=== PATIENT | female | born 1965 | race Caucasian/White ===

== ENCOUNTER 2016-06-03 12:21 | Outpatient (CLI) | payer MEDICARE | END 2016-06-03 12:22 | disposition home or self-care (01) | DX: E11.9 Type 2 diabetes mellitus without complications (principal) ==

== ENCOUNTER 2017-01-01 09:45 | Outpatient (CLI) | payer MEDICARE, OTHER ==
[2017-01-01 19:10] LABS: BASOPHILS % (AUTO) 0.8 %; EOSINOPHILS # (AUTO) 0.1 10^3/uL (0.0-0.7); EOSINOPHILS % (AUTO) 2.2 %; HCT - HEMATOCRIT 39.7 % (37.0-47.0); HGB - HEMOGLOBIN 13.3 g/dL (12.0-16.0); LYMPHOCYTES % (AUTO) 34.9 %; MEAN CORPUSCULAR HEMOGLOBIN 29.8 pg (27.0-31.0); MEAN CORPUSCULAR HGB CONC 33.5 g/dL (32.0-36.0); MEAN PLATELET VOLUME 8.1 fL (7.9-10.8); MONOCYTES # (AUTO) 0.4 10^3/uL (0.0-1.0); MONOCYTES % (AUTO) 6.3 %; NEUTROPHILS # (AUTO) 3.2 10^3/uL (1.5-6.6); NEUTROPHILS % (AUTO) 55.8 %; NUCLEATED RED BLOOD CELLS AUTO 0.1 /100WBC; RED BLOOD COUNT 4.46 10^6/uL (4.20-5.40); RED CELL DISTRIBUTION WIDTH 13.4 % (12.0-15.0); UNCORRECTED WHITE BLOOD COUNT 5.7 x10^3/uL; WHITE BLOOD COUNT 5.7 x10^3/uL (4.8-10.8)
[2017-01-01 19:33] LABS: ALBUMIN/GLOBULIN RATIO 1.1 (1.0-2.2); BILIRUBIN,TOTAL 0.3 mg/dL (0.2-1.0); BUN - BLOOD UREA NITROGEN 13 mg/dL (6-20); CALCIUM 9.2 mg/dL (8.5-10.3); CARBON DIOXIDE - CO2 30 mmol/L (21-32); CHLORIDE 101 mmol/L (101-111); CHOL/HDL RATIO 3.3 (<4.4); CHOLESTEROL 227 mg/dL; CREATININE 0.6 mg/dL (0.4-1.0); GFR - MDRD 105 (>89); GLUCOSE 119 mg/dL (70-100); HDL CHOLESTEROL 69 mg/dL; LDL/HDL RATIO 1.8 (<4.4); POTASSIUM 4.2 mmol/L (3.5-5.0); SODIUM 139 mmol/L (135-145); TRIGLYCERIDES 181 mg/dL; VLDL CHOLESTEROL 36 mg/dL
[2017-01-01 19:34] LABS: HEMOGLOBIN A1C 0.57 g/dL
[2017-01-04 00:02] LABS: HSV 1 IGG INDEX <0.90 INDEX (()); HSV 1/2 IGM INDEX <0.90 INDEX (()); HSV 2 IGG INDEX 8.17 INDEX (())
== END 2017-01-01 09:46 | disposition home or self-care (01) ==
LOC: LAB.WCP 09:45
PROVIDERS: ATTEND Family Medicine
DX: N76.0 Acute vaginitis (principal)
CPT/HCPCS: 36415; 80053; 80061; 83036; 85025; 86694; 86695; 86696; 87480; 87491; 87510; 87591; 87660

== ENCOUNTER 2017-03-31 13:20 | Outpatient (CLI) | payer MEDICARE, OTHER | END 2017-03-31 13:21 | disposition home or self-care (01) | LOC: LAB.WCP 13:20 | PROVIDERS: ATTEND Family Medicine | DX: R39.15 Urgency of urination (principal) | CPT/HCPCS: 87086 ==

== ENCOUNTER 2017-11-17 11:22 | Outpatient (CLI) | payer MEDICARE ==
[2017-11-17 18:34] LABS: BASOPHILS % (AUTO) 0.7 %; EOSINOPHILS # (AUTO) 0.1 10^3/uL (0.0-0.7); EOSINOPHILS % (AUTO) 1.8 %; HGB - HEMOGLOBIN 13.5 g/dL (12.0-16.0); LYMPHOCYTES # (AUTO) 1.8 10^3/uL (1.5-3.5); LYMPHOCYTES % (AUTO) 46.5 %; MEAN CORPUSCULAR HEMOGLOBIN 29.6 pg (27.0-31.0); MEAN CORPUSCULAR HGB CONC 32.3 g/dL (32.0-36.0); MEAN CORPUSCULAR VOLUME 91.7 fL (81.0-99.0); MEAN PLATELET VOLUME 8.1 fL (7.9-10.8); MONOCYTES # (AUTO) 0.3 10^3/uL (0.0-1.0); MONOCYTES % (AUTO) 7.1 %; NEUTROPHILS # (AUTO) 1.7 10^3/uL (1.5-6.6); NEUTROPHILS % (AUTO) 43.9 %; PLT - PLATELET COUNT 259 10^3/uL (130-450); RED BLOOD COUNT 4.56 10^6/uL (4.20-5.40); RED CELL DISTRIBUTION WIDTH 13.8 % (12.0-15.0); WHITE BLOOD COUNT 3.8 x10^3/uL (4.8-10.8)
[2017-11-17 19:04] LABS: ALBUMIN 3.5 g/dL (3.2-5.5); ALKALINE PHOSPHATASE 45 IU/L (42-121); ALT ALANINE AMINOTRANSFERASE 20 IU/L (10-60); AST ASPARTATE AMINOTRANSFERASE 23 IU/L (10-42); BILIRUBIN,TOTAL 0.6 mg/dL (0.2-1.0); BUN - BLOOD UREA NITROGEN 12 mg/dL (6-20); CALCIUM 9.1 mg/dL (8.5-10.3); CARBON DIOXIDE - CO2 28 mmol/L (21-32); CHLORIDE 102 mmol/L (101-111); CHOL/HDL RATIO 2.6 (<4.4); CHOLESTEROL 199 mg/dL; CREATININE 0.5 mg/dL (0.4-1.0); GFR - MDRD 129 (>89); GLUCOSE 99 mg/dL (70-100); HDL CHOLESTEROL 77 mg/dL; LDL CHOLESTEROL,CALCULATED 95 mg/dL; LDL/HDL RATIO 1.2 (<4.4); SODIUM 139 mmol/L (135-145); TOTAL PROTEIN 7.1 g/dL (6.7-8.2); VLDL CHOLESTEROL 27 mg/dL
[2017-11-17 19:19] LABS: HB2 TOTAL 14.7 g/dL; HEMOGLOBIN A1C 0.53 g/dL; HEMOGLOBIN A1C % 5.4 % (4.6-6.2)
== END 2017-11-17 11:23 | disposition home or self-care (01) ==
LOC: LAB.WCP 11:22
PROVIDERS: ATTEND Family Medicine
DX: I10 Essential (primary) hypertension (principal); E78.5 Hyperlipidemia, unspecified; E03.9 Hypothyroidism, unspecified
CPT/HCPCS: 36415; 80053; 80061; 83036; 83721; 84443; 85025

== ENCOUNTER 2018-01-19 10:50 | Outpatient (CLI) | payer MEDICARE | END 2018-01-19 10:51 | disposition home or self-care (01) | LOC: SC 10:50 | PROVIDERS: ATTEND Internal Medicine Pulmonary Disease | DX: G47.33 Obstructive sleep apnea (adult) (pediatric) (principal); E66.9 Obesity, unspecified; Z68.35 Body mass index [BMI] 35.0-35.9, adult | CPT/HCPCS: 99203; G0463; 99212 ==

== ENCOUNTER 2018-02-27 14:02 | Outpatient (CLI) | payer MEDICARE ==
[2018-02-27 19:00] LABS: THYROID STIMULATING HORMONE 1.2 uIU/mL (0.34-5.60)
[2018-02-27 19:02] LABS: FREE T4 (FREE THYROXINE) 0.94 ng/dL (0.58-1.64)
== END 2018-02-27 14:03 | disposition home or self-care (01) ==
LOC: LAB.WCP 14:02
PROVIDERS: ATTEND Family Medicine
DX: E03.9 Hypothyroidism, unspecified (principal)
CPT/HCPCS: 36415; 84439; 84443; 84481

== ENCOUNTER 2018-03-03 10:20 | Outpatient (CLI) | payer MEDICARE | END 2018-03-03 10:21 | disposition home or self-care (01) | LOC: SC 10:20 | PROVIDERS: ATTEND Internal Medicine Pulmonary Disease | DX: G47.33 Obstructive sleep apnea (adult) (pediatric) (principal) | CPT/HCPCS: 99213; G0463; 99212 ==

== ENCOUNTER 2019-01-19 08:00 | Outpatient (CLI) | payer MEDICARE ==
[2019-01-19 18:41] LABS: BASOPHILS % (AUTO) 0.6 %; EOSINOPHILS # (AUTO) 0.1 10^3/uL (0.0-0.7); EOSINOPHILS % (AUTO) 2.4 %; HGB - HEMOGLOBIN 14.1 g/dL (12.0-16.0); LYMPHOCYTES # (AUTO) 2.2 10^3/uL (1.5-3.5); LYMPHOCYTES % (AUTO) 46.8 %; MEAN CORPUSCULAR HEMOGLOBIN 30.3 pg (27.0-31.0); MEAN CORPUSCULAR HGB CONC 32.4 g/dL (32.0-36.0); MEAN CORPUSCULAR VOLUME 93.3 fL (81.0-99.0); MONOCYTES # (AUTO) 0.4 10^3/uL (0.0-1.0); MONOCYTES % (AUTO) 9.1 %; NEUTROPHILS # (AUTO) 1.9 10^3/uL (1.5-6.6); NEUTROPHILS % (AUTO) 40.9 %; PLT - PLATELET COUNT 316 10^3/uL (130-450); RED BLOOD COUNT 4.66 10^6/uL (4.20-5.40); RED CELL DISTRIBUTION WIDTH 13.3 % (12.0-15.0); WHITE BLOOD COUNT 4.6 x10^3/uL (4.8-10.8)
[2019-01-19 19:05] LABS: CREATININE,URINE 103.2 mg/dL; MICROALBUMIN,URINE < 0.2 mg/dL (0-300.0)
[2019-01-19 19:11] LABS: HB2 TOTAL 14.6 g/dL; HEMOGLOBIN A1C 0.56 g/dL; HEMOGLOBIN A1C % 5.7 % (4.6-6.2)
[2019-01-19 19:20] LABS: ALBUMIN 3.9 g/dL (3.2-5.5); ALBUMIN/GLOBULIN RATIO 1.1 (1.0-2.2); ALKALINE PHOSPHATASE 46 IU/L (42-121); ALT ALANINE AMINOTRANSFERASE 23 IU/L (10-60); AST ASPARTATE AMINOTRANSFERASE 23 IU/L (10-42); BILIRUBIN,TOTAL 0.5 mg/dL (0.2-1.0); BUN - BLOOD UREA NITROGEN 16 mg/dL (6-20); CALCIUM 9.3 mg/dL (8.5-10.3); CARBON DIOXIDE - CO2 26 mmol/L (21-32); CHLORIDE 103 mmol/L (101-111); CHOL/HDL RATIO 2.8 (<4.4); CHOLESTEROL 239 mg/dL; CREATININE 0.5 mg/dL (0.4-1.0); GFR - MDRD 128 (>89); GLUCOSE 84 mg/dL (70-100); HDL CHOLESTEROL 85 mg/dL; LDL CHOLESTEROL,CALCULATED 112 mg/dL; LDL/HDL RATIO 1.3 (<4.4); SODIUM 137 mmol/L (135-145); TOTAL PROTEIN 7.5 g/dL (6.7-8.2); VLDL CHOLESTEROL 42 mg/dL
== END 2019-01-19 23:59 | disposition home or self-care (01) ==
LOC: LAB.WCP 08:00
PROVIDERS: ATTEND Family Medicine
DX: I10 Essential (primary) hypertension (principal); E78.5 Hyperlipidemia, unspecified; E11.9 Type 2 diabetes mellitus without complications; E03.9 Hypothyroidism, unspecified
CPT/HCPCS: 36415; 80053; 80061; 82043; 82570; 83036; 83721; 84443; 85025

== ENCOUNTER 2019-11-29 12:46 | Outpatient (CLI) | payer MEDICARE | END 2019-11-29 12:47 | disposition home or self-care (01) | LOC: COV 12:46 | PROVIDERS: ATTEND Family Medicine | DX: Z01.812 Encounter for preprocedural laboratory examination (principal); Z20.828 Contact with and (suspected) exposure to other viral communicable diseases ==

== ENCOUNTER 2020-04-19 15:02 | Outpatient (CLI) | payer MEDICARE ==
--- NOTE | 2020-04-19 15:38 | SLEEP CARE CONSULTATION ---
Information from patient questionnaire entered by Miguel Haq. I have reviewed and concur with the information entered by Miguel Haq. This document represents the service I personally performed and the decisions made by , Merlyn Worthy ARNP. History of Present Illness Service Date and Time: 04/19/2020 1502 Previous diagnosis: Moderate, Obstructive Sleep Apnea-Hypopnea Syndrome AHI: 20.3 Reason for follow up: annual (Last seen 02/2018) Equipment type: CPAP Equipment obtained from: [employer] (some frustration lately due to not being able to get service for mask refitting) Mask style: Nasal (Dream Wisp) Mask brand: Respironics Backup mask available: Yes (old mask) Last cushion change: 2 weeks Year and Where: 2008 [facility] Type of Sleep Study: Polysomnography HPI additional information: MADALYN ARRINGTON was diagnosed to have moderate, AHI 20.3, obstructive sleep apnea- hypopnea syndrome and returned today for CPAP therapy first compliance follow- up. CPAP Compliance Data - Data Reviewed with Patient Average duration of nightly device use: 7 hours 13 minutes Compliance rate %: 97.2 Current pressure setting (cmH2O): 8-12 Humidity settin Heated hose settin Average residual AHI: 3.3 Central apnea: 0.3 Obstructive apnea: 1.2 Average large leak: 57 seconds Subjective Missed days of use due to: reports: mask issues Patient concerns: reports: air blowing in eyes, dry mouth, nose, throat (dry nose), other (headache, not sure if related to therapy, may be related to neck/back issues). denies: aerophagia, mask discomfort, mask leak noise, condensation in mask/hose, nasal congestion, epistaxis Observed to snore while using device: No Current pressure setting perceived as: comfortable On therapy, patient: reports: sleeping better, awakening more refreshed, being more awake and alert during the day, more rested overall. denies: drowsiness while driving Initial [place] Sleepiness Scale score: 6 (in 2018) Current [place] Sleepiness Scale score: 4 Allergies and Home Medications Drug allergies reviewed: Yes (see above) Home medication list reviewed: Yes (no changes) Review of Systems Review of systems same as previous: Yes (no changes) Physical Exam Heart Rate: 79 O2 Saturation: 98 Height: 5 ft 8 in Weight: 233 lb Body Mass Index: 35.4 BMI Classification: Obese Impression and Plan 1. Obstructive Sleep Apnea-Hypopnea Syndrome, moderate, with good treatment compliance and good apnea control. On CPAP therapy, the patient has better sleep quality and is more rested overall. Patient has had some very dry nasal passages lately with CPAP use. Nasal dryness can be reduced with increasing the CPAP humidity as shown on sample device and the heated hose can be increased if condensation. I verbally described how to change the settings. She is currently at 4 humidity and 4 on heated hose, she was instructed to try to reduce the heated hose to 3 first before increasing humidity setting. She voiced understanding. She would like to try a different mask style. She is currently using a DreamWisp mask, small/medium. I showed her different styles in the office and she would like to try the nasal cushion mask. Her DME will be faxed an order for the change. Patient's apnea severity and rationale for treatment to reduce apnea, improve sleep quality and reduce cardiovascular and cerebrovascular events was reviewed. I also reviewed the benefit of consistent device use of CPAP for hypertension, diabetes, gastric reflux, and depression/anxiety. * Continue auto CPAP pressure at 8-12 cmH2O * Patient to try a nasal cushion mask, script written * Notify me if snoring with mask or feeling that the pressure is too much or too little * Attempt to lose weight * Call this office if any problems using CPAP * Return for follow up in 1 year , or sooner if concerns arise Counseling Topics: Spare mask, Weight loss health impact Visit Type: In Office Time Spent with Patient (minutes): 24 Provider Statement: I spent 100% of the Face to Face Visit with the patient with greater than 50% spent counseling the patient and coordination of care.
== END 2020-04-19 15:03 | disposition home or self-care (01) ==
LOC: SC 15:02
PROVIDERS: ATTEND Nurse Practitioner Family
DX: G47.33 Obstructive sleep apnea (adult) (pediatric) (principal); E66.9 Obesity, unspecified; Z68.35 Body mass index [BMI] 35.0-35.9, adult
CPT/HCPCS: 99213; G0463; 99212

== ENCOUNTER 2020-05-11 08:00 | Outpatient (CLI) | payer MEDICARE ==
[2020-05-11 18:45] LABS: BASOPHILS % (AUTO) 0.9 %; EOSINOPHILS # (AUTO) 0.1 10^3/uL (0.0-0.7); EOSINOPHILS % (AUTO) 3.1 %; HCT - HEMATOCRIT 42.1 % (37.0-47.0); HGB - HEMOGLOBIN 13.3 g/dL (12.0-16.0); LYMPHOCYTES # (AUTO) 1.9 10^3/uL (1.5-3.5); LYMPHOCYTES % (AUTO) 40.6 %; MEAN CORPUSCULAR HEMOGLOBIN 29.8 pg (27.0-31.0); MEAN CORPUSCULAR HGB CONC 31.6 g/dL (32.0-36.0); MEAN CORPUSCULAR VOLUME 94.4 fL (81.0-99.0); MEAN PLATELET VOLUME 10.1 fL (7.9-10.8); MONOCYTES # (AUTO) 0.3 10^3/uL (0.0-1.0); MONOCYTES % (AUTO) 6.8 %; NEUTROPHILS # (AUTO) 2.2 10^3/uL (1.5-6.6); NEUTROPHILS % (AUTO) 48.2 %; PLT - PLATELET COUNT 278 10^3/uL (130-450); RED BLOOD COUNT 4.46 10^6/uL (4.20-5.40); RED CELL DISTRIBUTION WIDTH 13.4 % (12.0-15.0); WHITE BLOOD COUNT 4.6 x10^3/uL (4.8-10.8)
[2020-05-11 18:55] LABS: CREATININE,URINE 139.3 mg/dL; MICROALBUM/CREATININE RATIO,UR 2.2 ug/mg (<30.0); MICROALBUMIN,URINE 0.3 mg/dL (0-300.0)
[2020-05-11 19:03] LABS: ALBUMIN 3.7 g/dL (3.2-5.5); ALBUMIN/GLOBULIN RATIO 1.1 (1.0-2.2); ALKALINE PHOSPHATASE 46 IU/L (42-121); ALT ALANINE AMINOTRANSFERASE 20 IU/L (10-60); AST ASPARTATE AMINOTRANSFERASE 20 IU/L (10-42); BILIRUBIN,TOTAL 0.5 mg/dL (0.2-1.0); BUN - BLOOD UREA NITROGEN 11 mg/dL (6-20); CALCIUM 9.1 mg/dL (8.5-10.3); CARBON DIOXIDE - CO2 26 mmol/L (21-32); CHLORIDE 104 mmol/L (101-111); CHOL/HDL RATIO 2.5 (<4.4); CHOLESTEROL 220 mg/dL; CREATININE 0.5 mg/dL (0.4-1.0); GFR - MDRD 128 (>89); GLUCOSE 98 mg/dL (70-100); HDL CHOLESTEROL 87 mg/dL; LDL CHOLESTEROL,CALCULATED 104 mg/dL; LDL/HDL RATIO 1.2 (<4.4); POTASSIUM 4.4 mmol/L (3.5-5.0); SODIUM 138 mmol/L (135-145); TOTAL PROTEIN 7.1 g/dL (6.7-8.2); TRIGLYCERIDES 147 mg/dL; VLDL CHOLESTEROL 29 mg/dL
[2020-05-11 19:04] LABS: ESTIMATED AVERAGE GLUCOSE 114 mg/dL (70-100); HEMOGLOBIN A1c% 5.6 % (4.27-6.07)
[2020-05-11 19:09] LABS: THYROID STIMULATING HORMONE 2.12 uIU/mL (0.34-5.60)
== END 2020-05-11 23:59 | disposition home or self-care (01) ==
LOC: LAB.WCP 08:00
PROVIDERS: ATTEND Family Medicine
DX: E11.9 Type 2 diabetes mellitus without complications (principal)
CPT/HCPCS: 36415; 80053; 80061; 82043; 82570; 83036; 83721; 84443; 85025

== ENCOUNTER 2021-02-16 08:00 | Outpatient (CLI) | payer MEDICARE ==
[2021-02-16 12:10] LABS: BASOPHILS % (AUTO) 0.6 %; EOSINOPHILS # (AUTO) 0.1 10^3/uL (0.0-0.7); EOSINOPHILS % (AUTO) 1.7 %; HCT - HEMATOCRIT 42.1 % (37.0-47.0); HGB - HEMOGLOBIN 13.6 g/dL (12.0-16.0); LYMPHOCYTES # (AUTO) 2.2 10^3/uL (1.5-3.5); MEAN CORPUSCULAR HGB CONC 32.3 g/dL (32.0-36.0); MEAN CORPUSCULAR VOLUME 92.7 fL (81.0-99.0); MEAN PLATELET VOLUME 9.6 fL (7.9-10.8); MONOCYTES # (AUTO) 0.4 10^3/uL (0.0-1.0); MONOCYTES % (AUTO) 8.2 %; NEUTROPHILS # (AUTO) 2.1 10^3/uL (1.5-6.6); NEUTROPHILS % (AUTO) 43.3 %; PLT - PLATELET COUNT 268 10^3/uL (130-450); RED BLOOD COUNT 4.54 10^6/uL (4.20-5.40); WHITE BLOOD COUNT 4.7 x10^3/uL (4.8-10.8)
[2021-02-16 12:31] LABS: ALBUMIN 3.7 g/dL (3.2-5.5); ALBUMIN/GLOBULIN RATIO 1.1 (1.0-2.2); ALKALINE PHOSPHATASE 45 IU/L (42-121); ALT ALANINE AMINOTRANSFERASE 21 IU/L (10-60); AST ASPARTATE AMINOTRANSFERASE 20 IU/L (10-42); BILIRUBIN,TOTAL 0.6 mg/dL (0.2-1.0); BUN - BLOOD UREA NITROGEN 12 mg/dL (6-20); CARBON DIOXIDE - CO2 25 mmol/L (21-32); CHLORIDE 103 mmol/L (101-111); CHOL/HDL RATIO 2.7 (<4.4); CHOLESTEROL 203 mg/dL; CREATININE 0.4 mg/dL (0.4-1.0); GFR - MDRD 165 (>89); GLUCOSE 114 mg/dL (70-100); HDL CHOLESTEROL 75 mg/dL; LDL CHOLESTEROL,CALCULATED 105 mg/dL; LDL/HDL RATIO 1.4 (<4.4); POTASSIUM 4.2 mmol/L (3.5-5.0); SODIUM 139 mmol/L (135-145); TRIGLYCERIDES 115 mg/dL; VLDL CHOLESTEROL 23 mg/dL
[2021-02-16 12:39] LABS: THYROID STIMULATING HORMONE 3.19 uIU/mL (0.34-5.60)
[2021-02-16 13:06] LABS: ESTIMATED AVERAGE GLUCOSE 120 mg/dL (70-100); HEMOGLOBIN A1c% 5.8 % (4.27-6.07)
== END 2021-02-16 23:59 | disposition home or self-care (01) ==
LOC: LAB.WCP 08:00
PROVIDERS: ATTEND Family Medicine
DX: E11.9 Type 2 diabetes mellitus without complications (principal)
CPT/HCPCS: 36415; 80053; 80061; 83036; 83721; 84443; 85025

== ENCOUNTER 2021-02-21 08:00 | Outpatient (CLI) | payer MEDICARE ==
--- NOTE | 2021-02-21 17:12 | XRAY Report ---
PROCEDURE: Chest 2 View X-Ray INDICATIONS: COUGH TECHNIQUE: 2 view(s) of the chest. COMPARISON: Chest x-ray 04/10/2015 FINDINGS: Surgical changes and devices: None. Lungs and pleura: No pleural effusions or pneumothorax. Lungs are clear. Mediastinum: Mediastinal contours are normal. Heart size is normal. Bones and chest wall: No suspicious bony abnormalities. Soft tissues appear unremarkable. IMPRESSION: No acute pulmonary process. Reviewed by: Estee Valles MD on 02/21/2021 5:11 PM PDT Approved by: Estee Valles MD on 02/21/2021 5:11 PM PDT Station ID: [id number]
== END 2021-02-21 23:59 | disposition home or self-care (01) ==
LOC: DI.N 08:00
PROVIDERS: ATTEND Physician Assistant Medical
DX: R50.9 Fever, unspecified (principal); R06.02 Shortness of breath

== ENCOUNTER 2021-02-21 13:18 | Outpatient (CLI) | payer MEDICARE | END 2021-02-21 23:59 | disposition home or self-care (01) | LOC: LAB.N 13:18 | PROVIDERS: ATTEND Physician Assistant Medical | DX: U07.1 COVID-19 (principal) ==

== ENCOUNTER 2021-08-29 08:00 | Outpatient (CLI) | payer MEDICARE | END 2021-08-29 23:59 | disposition home or self-care (01) | LOC: LAB.N 08:00 | PROVIDERS: ATTEND Family Medicine | DX: J02.9 Acute pharyngitis, unspecified (principal) ==

== ENCOUNTER 2021-09-19 10:21 | Outpatient (CLI) | payer MEDICARE ==
--- NOTE | 2021-09-19 17:25 | XRAY Report ---
PROCEDURE: Chest 2 View X-Ray INDICATIONS: COUGH TECHNIQUE: 2 view(s) of the chest. COMPARISON: 02/21/2021. FINDINGS: Surgical changes and devices: None. Lungs and pleura: No pleural effusions or pneumothorax. Lungs are clear. Mediastinum: Mediastinal contours are normal. Heart size is normal. Bones and chest wall: No suspicious bony abnormalities. Soft tissues appear unremarkable. IMPRESSION: No acute cardiopulmonary disease process. Reviewed by: Trupti Antoine MD, PhD on 09/19/2021 5:24 PM PDT Approved by: Trupti Antoine MD, PhD on 09/19/2021 5:24 PM PDT Station ID: [id number]
== END 2021-09-19 10:22 | disposition home or self-care (01) ==
LOC: DI.N 10:21
PROVIDERS: ATTEND Family Medicine
DX: R05.9 Cough, unspecified (principal)

== ENCOUNTER 2021-11-16 09:34 | Outpatient (CLI) | payer MEDICARE ==
[2021-11-16 12:15] LABS: BASOPHILS % (AUTO) 0.7 %; EOSINOPHILS # (AUTO) 0.1 10^3/uL (0.0-0.7); EOSINOPHILS % (AUTO) 1.8 %; HCT - HEMATOCRIT 41.6 % (37.0-47.0); HGB - HEMOGLOBIN 13.4 g/dL (12.0-16.0); LYMPHOCYTES # (AUTO) 2.1 10^3/uL (1.5-3.5); LYMPHOCYTES % (AUTO) 47.2 %; MEAN CORPUSCULAR HEMOGLOBIN 30.2 pg (27.0-31.0); MEAN CORPUSCULAR HGB CONC 32.2 g/dL (32.0-36.0); MEAN CORPUSCULAR VOLUME 93.7 fL (81.0-99.0); MONOCYTES # (AUTO) 0.3 10^3/uL (0.0-1.0); MONOCYTES % (AUTO) 7.6 %; NEUTROPHILS # (AUTO) 1.9 10^3/uL (1.5-6.6); NEUTROPHILS % (AUTO) 42.7 %; PLT - PLATELET COUNT 308 10^3/uL (130-450); RED BLOOD COUNT 4.44 10^6/uL (4.20-5.40); RED CELL DISTRIBUTION WIDTH 13.5 % (12.0-15.0); WHITE BLOOD COUNT 4.3 x10^3/uL (4.8-10.8)
[2021-11-16 12:32] LABS: ALBUMIN/GLOBULIN RATIO 1.3 (1.0-2.2); ALKALINE PHOSPHATASE 42 IU/L (42-121); ALT ALANINE AMINOTRANSFERASE 24 IU/L (10-60); AST ASPARTATE AMINOTRANSFERASE 21 IU/L (10-42); BILIRUBIN,TOTAL 0.6 mg/dL (0.2-1.0); BUN - BLOOD UREA NITROGEN 15 mg/dL (6-20); CALCIUM 9.5 mg/dL (8.5-10.3); CARBON DIOXIDE - CO2 29 mmol/L (21-32); CHLORIDE 99 mmol/L (101-111); CHOL/HDL RATIO 2.5 (<4.4); CHOLESTEROL 221 mg/dL; CREATININE 0.5 mg/dL (0.4-1.0); GFR - MDRD 127 (>89); GLUCOSE 108 mg/dL (70-100); HDL CHOLESTEROL 89 mg/dL; LDL CHOLESTEROL,CALCULATED 111 mg/dL; LDL/HDL RATIO 1.2 (<4.4); POTASSIUM 4.5 mmol/L (3.5-5.0); SODIUM 137 mmol/L (135-145); TOTAL PROTEIN 7.2 g/dL (6.7-8.2); TRIGLYCERIDES 105 mg/dL; VLDL CHOLESTEROL 21 mg/dL
[2021-11-16 12:42] LABS: THYROID STIMULATING HORMONE 2.5 uIU/mL (0.34-5.60)
[2021-11-16 12:55] LABS: ESTIMATED AVERAGE GLUCOSE 114 mg/dL (70-100); HEMOGLOBIN A1c% 5.6 % (4.27-6.07)
== END 2021-11-16 09:35 | disposition home or self-care (01) ==
LOC: LAB.N 09:34
PROVIDERS: ATTEND Nurse Practitioner Family
DX: E55.9 Vitamin D deficiency, unspecified (principal); E11.9 Type 2 diabetes mellitus without complications; E78.5 Hyperlipidemia, unspecified; Z79.890 Hormone replacement therapy; E03.9 Hypothyroidism, unspecified; I10 Essential (primary) hypertension
CPT/HCPCS: 36415; 80053; 80061; 82306; 83036; 83721; 84443; 85025

== ENCOUNTER 2022-02-12 14:28 | Outpatient (CLI) | payer MEDICARE ==
[2022-02-12 15:13] VITALS: BP 130/82
--- NOTE | 2022-02-12 15:13 | SLEEP CARE CONSULTATION ---
Information from patient questionnaire entered by Bairon Gamino. I have reviewed and concur with the information entered by Bairon Gamino. This document represents the service I personally performed and the decisions made by , Merlyn Worthy ARNP. History of Present Illness Service Date and Time: 02/12/2022 1428 Previous diagnosis: Moderate, Obstructive Sleep Apnea-Hypopnea Syndrome AHI: 20.3 Reason for follow up: annual (LAST SEEN 04/2020) Equipment type: CPAP (DREAMSTATION) Equipment obtained from: [employer] (has not ordered for a time) Mask style: Nasal (Dream Wisp) Mask brand: Respironics Backup mask available: No (will need to keep old mask when replaced) Last cushion change: 2 weeks ago Year and Where: 2008 [facility] Type of Sleep Study: Polysomnography HPI additional information: MADALYN ARRINGTON was diagnosed to have moderate, AHI 20.3, obstructive sleep apnea- hypopnea syndrome and returned today for CPAP therapy annual follow-up. Sleep Study - Results Type of Sleep Study: Polysomnography Year and Where: 2008 [facility] CPAP Compliance Data - Data Reviewed with Patient Average duration of nightly device use: 7 hours 5 minutes Compliance rate %: 96.7 (166/180 days used) Current pressure setting (cmH2O): 8-12 (avg 12.0) Average residual AHI: 2.8 Central apnea: 0.3 Obstructive apnea: 1.1 Subjective Patient concerns: reports: mask discomfort, air blowing in eyes, mask leak noise, nasal congestion, dry mouth, nose, throat, other (headaches-occasional). denies: aerophagia, condensation in mask/hose, epistaxis Observed to snore while using device: Yes Current pressure setting perceived as: comfortable (unsure) On therapy, patient: reports: other (not sleeping well; energy is down). denies: awakening more refreshed, drowsiness while driving Initial [place] Sleepiness Scale score: 6 (in 2018) Current [place] Sleepiness Scale score: 9 (02/12/22) Allergies and Home Medications Home medication list reviewed: Yes (no changes) Allergy and home medication list: Allergies amoxicillin trihydrate * [From Augmentin] Allergy (Severe, Verified 09/16/12 16:44) erythemia multiforme blisters, sloughing of skin hands and feet, nail changes, hives codeine [Codeine] Allergy (Severe, Verified 09/16/12 16:48) hives and vomiting erythromycin base Allergy (Severe, Verified 09/16/12 16:47) hives and rash penicillin G Allergy (Severe, Verified 09/16/12 16:48) hives and rash potassium clavulanate * [From Augmentin] Allergy (Severe, Verified 09/16/12 16:44) erythemia multiforme blisters, sloughing of skin hands and feet, nail changes, hives gluten Adverse Reaction (Intermediate, Verified 09/16/12 17:27) GI milk Adverse Reaction (Intermediate, Uncoded 09/16/12 17:29) GI Review of Systems Review of systems same as previous: Yes (no changes) Physical Exam Vital signs obtained and entered by: KEV LEWIS Blood Pressure: 130/82 (LEFT ARM ) Cuff size: regular Heart Rate: 99 O2 Saturation: 98 Height: 5 ft 8 in Weight: 210 lb Body Mass Index: 31.9 BMI Classification: Obese Impression and Plan 1. Obstructive Sleep Apnea-Hypopnea Syndrome, moderate, with good treatment compliance and good apnea control. On CPAP therapy, the patient has better sleep quality and is more rested overall. Patient has had a very trying year because she lost her to COVID infection about a year ago. She states she is on medication for depression and anxiety. She does feel she needs to get better sleep. She has been having more difficulty with this because of the mask fit as well as her worries about using a machine that is on the recall. Patient states she has been using the same mask, Dream Wisp, for a long time and she would like to try different style of mask. She has been getting a lot of mask leak noises, air leaking into her eyes and dry mouth. I showed her some different styles in the office and she would like to try the DreamWear nasal pillows mask by [employer]. I will put this on her prescription for her to try this mask. Patient states she is snoring when she uses her device and gets occasional headaches. To resolve snore, the CPAP pressure will be changed to 11- 14 cmH20. Patient advised to contact this office if pressure change uncomfortable or if pressure change does not resolve snore. Patient has a Dreamstation that is on the recall that was last updated in 01/2018. The patients CPAP is over 5 years old and of reasonable use. Thus, the CPAP will be updated. The new CPAPs also have a better humidity system which could assist control of patients dryness symptoms. A DWO prescription will be made. Compliance guidelines for new device and follow up discussed. Patient's apnea severity and rationale for treatment to reduce apnea, improve sleep quality and reduce cardiovascular and cerebrovascular events was reviewed. I also reviewed the benefit of consistent device use of CPAP for hypertension, diabetes, gastric reflux, depression and anxiety. 2. Obesity, unspecified. Currently patients BMI is 31.9. Obesity increases the risk of apnea, CPAP pressure requirements and overall health risks especially cardiovascular and diabetes. Thus patient is advised to lose weight. * Update device * Change auto CPAP pressure to 11-14 cmH2O * Update supplies * Notify me if snoring with mask or feeling that the pressure is too much or too little * Attempt to lose weight * Call this office if any problems using CPAP * Return for follow up one month after she obtains her new device, or sooner if concerns arise Counseling Topics: Spare mask, Weight loss health impact Visit Type: In Office Time Spent with Patient (minutes): 26 Provider Statement: I spent 100% of the Face to Face Visit with the patient with greater than 50% spent counseling the patient and coordination of care.
== END 2022-02-12 14:29 | disposition home or self-care (01) ==
LOC: SC 14:28
PROVIDERS: ATTEND Nurse Practitioner Family
DX: G47.33 Obstructive sleep apnea (adult) (pediatric) (principal); E66.9 Obesity, unspecified; Z68.31 Body mass index [BMI] 31.0-31.9, adult; Z63.4 Disappearance and death of family member
CPT/HCPCS: 99213; G0463; 99212

== ENCOUNTER 2022-05-17 16:49 | Outpatient (CLI) | payer MEDICARE ==
--- NOTE | 2022-05-17 16:46 | SLEEP CARE CONSULTATION ---
Information from patient questionnaire entered by Kalee Edmondson. I have reviewed and concur with the information entered by Kalee Edmondson. This document represents the service I personally performed and the decisions made by , Merlyn Worthy ARNP. History of Present Illness Service Date and Time: 05/17/2022 1620 Previous diagnosis: Moderate, Obstructive Sleep Apnea-Hypopnea Syndrome AHI: 20.3 Reason for follow up: first compliance after device update Equipment type: CPAP (ResMed Airsense 11) Equipment obtained from: [employer] (got new machine) Mask style: Nasal Mask brand: Resmed (Mirage FX for her) Backup mask available: No (will keep old mask when replaced) Year and Where: 2008 [facility] Type of Sleep Study: Polysomnography HPI additional information: MADALYN ARRINGTON was diagnosed to have moderate, AHI 20.3, obstructive sleep apnea- hypopnea syndrome and returns via video telehealth visit today for CPAP therapy first compliance after updating device follow-up. Sleep Study - Results Type of Sleep Study: Polysomnography Year and Where: 2008 [facility] CPAP Compliance Data - Data Reviewed with Patient Average duration of nightly device use: 7 hours 14 minutes Compliance rate %: 93 (30/30 days used) Current pressure setting (cmH2O): 11-14 Average residual AHI: 1.8 Central apnea: 0.1 Obstructive apnea: 1.3 Subjective Patient concerns: reports: mask discomfort. denies: aerophagia, air blowing in eyes, mask leak noise, condensation in mask/hose, nasal congestion, dry mouth, nose, throat, epistaxis Observed to snore while using device: No Current pressure setting perceived as: comfortable On therapy, patient: reports: sleeping better, awakening more refreshed, being more awake and alert during the day, more rested overall. denies: drowsiness while driving Initial [place] Sleepiness Scale score: 6 (in 2018) Current [place] Sleepiness Scale score: 7 Allergies and Home Medications Drug allergies reviewed: Yes (as listed in EMR) Home medication list reviewed: Yes (no changes) Review of Systems Review of systems same as previous: Yes (no changes) Physical Exam Vital signs obtained and entered by: VIA PHONE Height: 5 ft 8 in Impression and Plan 1. Obstructive Sleep Apnea-Hypopnea Syndrome, moderate, with good treatment compliance and good apnea control. On CPAP therapy, the patient has better sleep quality and is more rested overall. Patient would like to try a different mask. She has a ResMed Mirage Fx For Her that goes over her nose with the tubing out the front of her mask. She states is not very comfortable and she would like to try a nasal cushion that just goes under her nose. We discussed the DreamWear nasal cushion as well as the ResMed AirFit N 30i. She would like to try one of these and I will send a prescription to her DME provider supplier so that she can order a new mask. She will let me know if she needs further assistance. Patient's apnea severity and rationale for treatment to reduce apnea, improve sleep quality and reduce cardiovascular and cerebrovascular events was reviewed. I also reviewed the benefit of consistent device use of CPAP for hypertension, diabetes, gastric reflux, depression and anxiety. Patient encouraged to lose weight to reduce apneas and improve her overall health. * Continue auto CPAP pressure at 11-14 cmH2O * Try nasal cushion mask * Notify me if snoring with mask or feeling that the pressure is too much or too little * Attempt to lose weight * Call this office if any problems using CPAP * Return for follow up in 1 year, or sooner if concerns arise Counseling Topics: Spare mask, Weight loss health impact Visit Type: Telehealth Video Video Type: Doxruthity Patient Location: Home ([place]) Location of Provider: Office Patient agrees and consents to this telehealth visit type: Yes Patient agrees to have their insurance billed: Yes Time Spent with Patient (minutes): 21 Provider Statement: I spent 100% of the Telehealth Video Call with the patient with greater than 50% spent counseling the patient and coordination of care.
== END 2022-05-17 16:50 | disposition home or self-care (01) ==
LOC: SC 16:49
PROVIDERS: ATTEND Nurse Practitioner Family
DX: G47.33 Obstructive sleep apnea (adult) (pediatric) (principal)

== ENCOUNTER 2022-09-06 09:03 | Outpatient (CLI) | payer MEDICARE ==
--- NOTE | 2022-09-09 09:25 | Mammography Report ---
BILATERAL DIGITAL SCREENING MAMMOGRAM 3D/2D: 09/06/2022 CLINICAL: Routine screening. Comparison is made to exams dated: 02/27/2018 mammogram - [facility], 10/26/2015 mammogram, 015 mammogram, and 09/22/2013 mammogram - [facility]. Both breasts are heterogeneously dense, which may obscure small masses (category c / 51-75% glandular tissue). No significant masses, calcifications, or other findings are seen in either breast. There has been no significant interval change. IMPRESSION: NEGATIVE There is no mammographic evidence of malignancy. A 1 year screening mammogram is recommended. Based on the Tyrer Cuzick model (a risk assessment model) the patients lifetime risk is 11.4% and he r 10 year risk is 4.2%. According to the ACR, ACS, and NCCN guidelines, an annual breast MRI exam clint ng with mammogram is recommended if the patients lifetime risk is 20% or greater. This exam was interpreted at Station ID: [id number]. NOTE: For mammograms, a report in lay terms will be sent to the patient. Approximately 15% of breast malignancies will not be visualized mammographically. In the management of a palpable breast mass, a negative mammogram must not discourage biopsy of a clinically suspicious lesion. Electronically Signed By: Juanjose [email or web address]:09/06/2022 12:53:31 letter sent: No_Letter ACR BI-RADS Category 1: Negative 3341F PARENCHYMAL PATTERN: (D) - The breast(s) demonstrate(s) heterogeneously dense fibroglandular [place]. BI-RADS CATEGORY: (1) - 1 Mammogram [id number] 1 year screening LATERALITY: (B)
== END 2022-09-06 09:04 | disposition home or self-care (01) ==
LOC: DI 09:03
DX: Z12.31 Encounter for screening mammogram for malignant neoplasm of breast (principal)

== ENCOUNTER 2022-09-06 09:55 | Outpatient (CLI) | payer MEDICARE ==
[2022-09-06 10:08] LABS: BASOPHILS % (AUTO) 0.8 %; EOSINOPHILS # (AUTO) 0.1 10^3/uL (0.0-0.7); EOSINOPHILS % (AUTO) 2.8 %; HCT - HEMATOCRIT 42.4 % (37.0-47.0); HGB - HEMOGLOBIN 13.9 g/dL (12.0-16.0); LYMPHOCYTES # (AUTO) 2.1 10^3/uL (1.5-3.5); LYMPHOCYTES % (AUTO) 41.2 %; MEAN CORPUSCULAR HEMOGLOBIN 30.5 pg (27.0-31.0); MEAN CORPUSCULAR HGB CONC 32.8 g/dL (32.0-36.0); MEAN CORPUSCULAR VOLUME 93.2 fL (81.0-99.0); MEAN PLATELET VOLUME 9.2 fL (7.9-10.8); MONOCYTES # (AUTO) 0.4 10^3/uL (0.0-1.0); MONOCYTES % (AUTO) 7.1 %; NEUTROPHILS # (AUTO) 2.4 10^3/uL (1.5-6.6); NEUTROPHILS % (AUTO) 47.9 %; PLT - PLATELET COUNT 282 10^3/uL (130-450); RED BLOOD COUNT 4.55 10^6/uL (4.20-5.40); RED CELL DISTRIBUTION WIDTH 12.6 % (12.0-15.0); WHITE BLOOD COUNT 5.1 x10^3/uL (4.8-10.8)
[2022-09-06 10:26] LABS: ALBUMIN/GLOBULIN RATIO 1.2 (1.0-2.2); ALKALINE PHOSPHATASE 48 IU/L (42-121); ALT ALANINE AMINOTRANSFERASE 22 IU/L (10-60); AST ASPARTATE AMINOTRANSFERASE 21 IU/L (10-42); BILIRUBIN,TOTAL 0.5 mg/dL (0.2-1.0); BUN - BLOOD UREA NITROGEN 12 mg/dL (6-20); CALCIUM 8.7 mg/dL (8.5-10.3); CARBON DIOXIDE - CO2 26 mmol/L (21-32); CHLORIDE 100 mmol/L (101-111); CHOL/HDL RATIO 2.7 (<4.4); CHOLESTEROL 225 mg/dL; CREATININE 0.5 mg/dL (0.4-1.0); GFR - MDRD 127 (>89); GLUCOSE 108 mg/dL (70-100); HDL CHOLESTEROL 82 mg/dL; LDL CHOLESTEROL,CALCULATED 107 mg/dL; LDL/HDL RATIO 1.3 (<4.4); POTASSIUM 4.4 mmol/L (3.5-5.0); SODIUM 135 mmol/L (135-145); TOTAL PROTEIN 7.3 g/dL (6.7-8.2); TRIGLYCERIDES 179 mg/dL; VLDL CHOLESTEROL 36 mg/dL
[2022-09-06 10:35] LABS: ESTIMATED AVERAGE GLUCOSE 114 mg/dL (70-100); HEMOGLOBIN A1c% 5.6 % (4.27-6.07)
[2022-09-06 10:38] LABS: THYROID STIMULATING HORMONE 2.82 uIU/mL (0.34-5.60)
== END 2022-09-06 09:56 | disposition home or self-care (01) ==
LOC: LAB 09:55
PROVIDERS: ATTEND Nurse Practitioner Family
DX: I10 Essential (primary) hypertension (principal); E78.5 Hyperlipidemia, unspecified; E03.9 Hypothyroidism, unspecified
CPT/HCPCS: 36415; 80053; 80061; 83036; 83721; 84443; 85025

== ENCOUNTER 2023-01-02 10:09 | Outpatient (CLI) | payer MEDICARE ==
[2023-01-02 10:55] LABS: FERRITIN 29.4 ng/mL (11.0-306.8)
== END 2023-01-02 10:10 | disposition home or self-care (01) ==
LOC: LAB 10:09
PROVIDERS: ATTEND Nurse Practitioner Family
DX: E03.9 Hypothyroidism, unspecified (principal); R53.83 Other fatigue
CPT/HCPCS: 36415; 82728; 83540; 84439; 84466; 84481

== ENCOUNTER 2023-10-29 10:18 | Outpatient (CLI) | payer MEDICARE ==
--- NOTE | 2023-10-29 11:08 | Sleep Patient Instructions ---
Sleep Center Visit Summary - Patient Visit Information Reason for Visit: Annual follow-up - Patient Instructions Additional Instructions: You will continue with CPAP therapy with pressure changed to 12-15 cmH2O. A supply prescription will be updated with your DME. I have ordered a repeat sleep study to recheck sleep apnea diagnosis and severity. We encourage you to continue to try to lose weight. Please follow up with the sleep care office after sleep study. - Clinic Information Contact: [facility] [address] [place] [address] [email or web address] T: [phone]
--- NOTE | 2023-10-29 11:14 | SLEEP CARE CONSULTATION ---
Information from patient questionnaire entered by Kalee Edmondson. I have reviewed and concur with the information entered by Kalee Edmondson. This document represents the service I personally performed and the decisions made by , Merlyn Worthy ARNP. History of Present Illness Service Date and Time: 10/29/2023 1018 Previous diagnosis: Moderate, Obstructive Sleep Apnea-Hypopnea Syndrome AHI: 20.3 Reason for follow up: annual (last seen 05/2022) Equipment type: CPAP (ResMed Airsense 11, s/u 03/2022) Equipment obtained from: [employer] (needs updated RX) Mask style: Nasal (over the nose) Backup mask available: No (needs supplies) Last cushion change: 6 months Year and Where: 2008 [facility] Type of Sleep Study: Polysomnography HPI additional information: MADALYN ARRINGTON was diagnosed to have moderate, AHI 20.3, obstructive sleep apnea- hypopnea syndrome and returned today for CPAP therapy annual follow-up. Sleep Study - Results Type of Sleep Study: Polysomnography Year and Where: 2008 [facility] CPAP Compliance Data - Data Reviewed with Patient Average duration of nightly device use: 6 HRS 58 MINS Compliance rate %: 90 (10/27/22-10/26/23; 362/365 days used) Current pressure setting (cmH2O): 11-14 Average residual AHI: 1.9 Central apnea: 0.1 Obstructive apnea: 1.5 Average large leak: 0.9 L/min Subjective Patient concerns: reports: dry mouth, nose, throat (dry mouth). denies: aerophagia, mask discomfort, air blowing in eyes, mask leak noise, condensation in mask/hose, nasal congestion, epistaxis Observed to snore while using device: Yes Current pressure setting perceived as: comfortable On therapy, patient: reports: sleeping better, awakening more refreshed, being more awake and alert during the day, more rested overall. denies: drowsiness while driving Initial [place] Sleepiness Scale score: 6 (in 2018) Current [place] Sleepiness Scale score: 8 (10/29/23) Allergies and Home Medications Known drug allergies: Yes (as listed) Drug allergies reviewed: Yes Home medication list reviewed: Yes (no changes) Allergy and home medication list: Allergies amoxicillin trihydrate * [From Augmentin] Allergy (Severe, Verified 10/27/23 10:03) erythemia multiforme blisters, sloughing of skin hands and feet, nail changes, hives codeine [Codeine] Allergy (Severe, Verified 10/27/23 10:03) hives and vomiting erythromycin base Allergy (Severe, Verified 10/27/23 10:03) hives and rash penicillin G Allergy (Severe, Verified 10/27/23 10:03) hives and rash potassium clavulanate * [From Augmentin] Allergy (Severe, Verified 10/27/23 10:03) erythemia multiforme blisters, sloughing of skin hands and feet, nail changes, hives gluten Adverse Reaction (Intermediate, Verified 10/27/23 10:03) GI milk Adverse Reaction (Intermediate, Uncoded 10/27/23 10:03) GI Review of Systems Review of systems same as previous: Yes (NO CHANGE) Physical Exam Vital signs obtained and entered by: KALEE Nash MA Blood Pressure: 137/76 (LEFT ARM) Cuff size: regular Heart Rate: 76 O2 Saturation: 95 Height: 5 ft 8 in Weight: 238 lb 6.4 oz Body Mass Index: 36.2 BMI Classification: Obese Impression and Plan 1. Obstructive Sleep Apnea-Hypopnea Syndrome, moderate, with good treatment compliance and good apnea control. On CPAP therapy, the patient has better sleep quality and is more rested overall. Patient feels like she could use a little more pressure at times so I will adjust her pressure to 1215 cmH2O for patient comfort. Patient has significant improvement of their sleep apnea and is sa tisfied with current CPAP therapy. She does get a little dry mouth and has been having complaints of this morning. She thinks she is oral venting and we talked about ways to keep her lips together including a chinstrap or snoring strips over the mouth. She voiced understanding. Patient last had a sleep study in 2008. I would like to have a repeat sleep study to update her baseline and she agreed. She is in need of supplies because her insurance has changed and she was unable to get supplies because her supply prescription needed to be updated. She would like to try a new DME supplier. I will have my hr payroll coordinator inform of DME options. A DWO prescription will then be made. Patient advised to contact this office if further supply problems. Patient's apnea severity and rationale for treatment to reduce apnea, improve sleep quality and reduce cardiovascular and cerebrovascular events was reviewed. I also reviewed the benefit of consistent device use of CPAP for hypertension, diabetes, gastric reflux, depression/anxiety. 2. Obesity, unspecified. Currently patients BMI is 36.2. She says she feels she is eating right, has cut out sugar and is trying to get regular exercise but cannot seem to lose weight. Obesity increases the risk of apnea, CPAP pressure requirements and overall health risks especially cardiovascular and diabetes. Thus patient is advised to continue to try to lose weight. * Repeat PSG/HST since last sleep study was done in 2008 * Change auto CPAP pressure to 12-15 cmH2O * Transfer DME * Update supply prescription * Notify me if snoring with mask or feeling that the pressure is too much or too little * Attempt to lose weight * Call this office if any problems using CPAP * Return for follow up after PSG/HST, or sooner if concerns arise Adjust device pressure to (cmH2O): 12-15 Counseling Topics: Spare mask, Weight loss health impact Prescriptions: Device supplies (with DME Transfer) Plan: verifying PSG/HST and follow up Visit Type: In Office Time Spent with Patient (minutes): 24 Provider Statement: I spent 100% of the Face to Face Visit with the patient with greater than 50% spent counseling the patient and coordination of care.
[2023-10-29 11:41] VITALS: BP 137/76; O2SAT 95
== END 2023-10-29 10:19 | disposition home or self-care (01) ==
LOC: SC 10:18
PROVIDERS: ATTEND Nurse Practitioner Family
DX: G47.33 Obstructive sleep apnea (adult) (pediatric) (principal); E66.9 Obesity, unspecified; Z68.36 Body mass index [BMI] 36.0-36.9, adult
CPT/HCPCS: 99213; G0463; 99212

== ENCOUNTER 2023-11-17 19:24 | Outpatient (CLI) | payer MEDICARE | END 2023-11-17 19:25 | disposition home or self-care (01) | LOC: SC 19:24 | PROVIDERS: ATTEND Nurse Practitioner Family | DX: G47.33 Obstructive sleep apnea (adult) (pediatric) (principal); G47.61 Periodic limb movement disorder | CPT/HCPCS: 95810 ==

== ENCOUNTER 2023-11-28 07:37 | Outpatient (CLI) | payer MEDICARE ==
--- NOTE | 2023-12-01 09:40 | Mammography Report ---
BILATERAL DIGITAL DIAGNOSTIC MAMMOGRAM 3D/2D: 11/28/2023 CLINICAL: Skin lesion on right areaola. Due for bilateral exam. Comparison is made to exams dated: 09/06/2022 mammogram - [facility], 02/27/2018 ma mmogram - [facility], 10/26/2015 mammogram, 10/06/2014 mammogram, and 09/22/2013 mammogram - [facility]. Both breasts are heterogeneously dense, which may obscure small masses (category c / 51-75% glandular tissue). No significant masses, calcifications, or other findings are seen in either breast. IMPRESSION: INCOMPLETE: NEEDS ADDITIONAL IMAGING EVALUATION There is no abnormality seen in the right breast to correspond with the skin lesion in the sub-areola r depth, however, ultrasound is recommended for further evaluation and is scheduled to immediately fo llow this examination. Based on the Tyrer Cuzick model (a risk assessment model) the patient's lifetime risk is 11.0% and he r 10 year risk is 4.5%. According to the ACR, ACS, and NCCN guidelines, an annual breast MRI exam clint ng with mammogram is recommended if the patient's lifetime risk is 20% or greater. This exam was interpreted at Station ID: [id number]. NOTE: For mammograms, a report in lay terms will be sent to the patient. Approximately 15% of breast malignancies will not be visualized mammographically. In the management of a palpable breast mass, a negative mammogram must not discourage biopsy of a clinically suspicious lesion. Electronically Signed By: Mark Jang M.D. aty/:11/28/2023 08:36:43 ACR BI-RADS Category 0: Incomplete 3340F PARENCHYMAL PATTERN: (D) - The breast(s) demonstrate(s) heterogeneously dense fibroglandular parenchy ma. BI-RADS CATEGORY: (0) - 0 Ultrasound [id number] Immediate follow-up LATERALITY: (R)
--- NOTE | 2023-12-01 09:40 | Ultrasound Report ---
LIMITED ULTRASOUND OF RIGHT BREAST: 11/28/2023 CLINICAL: Nipple skin Changes. Comparison is made to exams dated: 09/06/2022 mammogram - [facility], 02/27/2018 ma mmogram - [facility], and 10/26/2015 mammogram - [facility]. Color flow ultrasound of the right breast retroareolar was performed. Parker scale images of the real- time examination were reviewed. No significant abnormalities were seen sonographically in the right breast. IMPRESSION: NEGATIVE There is no sonographic evidence of malignancy. There is no abnormality seen in the right breast to correspond with the area of clinical concern and biopsied skin lesion (benign pathology), however, recommend clinical follow up for persistent or wor sening symptoms, or development of any clinically suspicious findings. A 1 year screening mammogram is recommended. Findings and recommendations were conveyed to the patient during today's evaluation. This exam was interpreted at Station ID: [id number]. Electronically Signed By: Mark Jang M.D. aty/:11/28/2023 08:47:07 Ultrasound BI-RADS: 1 Negative BI-RADS CATEGORY: (1) - 1 RECOMMENDATION: (ANNUAL) - Recommend routine annual screening mammography. [id number] 1 year screening LATERALITY: (B)
== END 2023-11-28 07:38 | disposition home or self-care (01) ==
LOC: DI 07:37
PROVIDERS: ATTEND Physician Assistant
DX: N64.59 Other signs and symptoms in breast (principal); R92.333 Mammographic heterogeneous density, bilateral breasts

== ENCOUNTER 2023-12-03 10:53 | Outpatient (CLI) | payer MEDICARE ==
--- NOTE | 2023-12-03 11:20 | Sleep Patient Instructions ---
Sleep Center Visit Summary - Patient Visit Information Reason for Visit: Sleep study follow-up - Patient Instructions Additional Instructions: You were here for follow up of verifying diagnostic sleep study. You will be continued on CPAP therapy with pressure at 12-15 cmH2O. You should follow up with sleep care in 12 months. You may contact us sooner for any questions or concerns. - Clinic Information Contact: [facility] [address] [place] [id number] [email or web address] T: [phone]
--- NOTE | 2023-12-03 11:22 | SLEEP CARE CONSULTATION ---
Information from patient questionnaire entered by Kalee Edmondson. I have reviewed and concur with the information entered by Kalee Edmondson. This document represents the service I personally performed and the decisions made by , Merlyn Worthy ARNP. History of Present Illness Service Date and Time: 12/03/2023 1053 Initial [place] Sleepiness Scale score: 6 (in 2018) Current [place] Sleepiness Scale score: 6 (12/03/23) Additional HPI information: MADALYN ARRINGTON returns for follow up and results of the recently performed polysomnography. The sleep study done on 11/17/2023 showed mild obstructive sleep apnea with an average AHI of 6.5 and duane oxygen saturation of 89%. She had mild PLMs contributing to sleep fragmentation. The patient is currently on CPAP therapy set at 12-15 cmH20 with significant improvement of her sleep apnea. Patient counseled not drink alcohol less than 4 hours before bedtime as it can increase snoring and apnea. Patient was cautioned about risks of drowsy driving until sleepiness symptoms resolve. Patie nt denies drowsy driving. Sleep Study - Results Type of Sleep Study: Polysomnography (COMPLETED 11/17/23) Year and Where: 2008 [facility] Polysomnography/Home Sleep Study results: IMPRESSION: The quality of the study is good. The patient had reduced sleep efficiency due to frequent awakenings and court operations clerk awakening. The sleep architecture was abnormal for sleep fragmentation and reduced amount of time spent in REM and slow wave sleep (N3). Respiratory monito ring showed mild obstructive sleep apnea-hypopnea (AHI = 6.5) associated with frequent arousals, oxyhemoglobin desaturation and mild hypoxia (duane oxygen saturation of 89%). The respiratory events occurred predominantly during supine sleep (supine AHI = 42.3; non-supine = 5.42). Snore was moderate to loud in intensity. There was mild periodic leg movement of sleep contributing to the sleep fragmentation. Cardiac rhythm was normal sinus rhythm without significant arrhythmia. No abnormal behavior (parasomnia) observed during the night. Allergies and Home Medications Known drug allergies: Yes (as listed) Allergy and home medication list: Allergies amoxicillin trihydrate * [From Augmentin] Allergy (Severe, Verified 12/01/23 10 :08) erythemia multiforme blisters, sloughing of skin hands and feet, nail changes, hives codeine [Codeine] Allergy (Severe, Verified 12/01/23 10:08) hives and vomiting erythromycin base Allergy (Severe, Verified 12/01/23 10:08) hives and rash penicillin G Allergy (Severe, Verified 12/01/23 10:08) hives and rash potassium clavulanate * [From Augmentin] Allergy (Severe, Verified 12/01/23 10:0 8) erythemia multiforme blisters, sloughing of skin hands and feet, nail changes, hives gluten Adverse Reaction (Intermediate, Verified 12/01/23 10:08) GI milk Adverse Reaction (Intermediate, Uncoded 12/01/23 10:08) GI Review of Systems Review of systems same as previous: No (PARALYZED LEFT VOCAL CHORDS AND CT SCAN) Physical Exam Vital signs obtained and entered by: KALEE Nash MA Blood Pressure: 134/81 (RIGHT ARM) Cuff size: long Heart Rate: 75 O2 Saturation: 95 Height: 5 ft 8 in Weight: 233 lb 6.4 oz Body Mass Index: 35.4 BMI Classification: Obese Impression and Plan 1. Obstructive Sleep Apnea-Hypopnea Syndrome, mild, with lowest oxygen saturation of 89%. She returns to office after diagnostic sleep study to obtain new baseline results. Continuing positive pressure therapy could benefit her hypertension, diabetes, gastric reflux, depression and anxiety. On CPAP therapy, the patient has better sleep quality and is more rested overall. She plans on continuing with CPAP therapy for fpc. Patient's apnea severity and rationale for treatment to reduce apnea, improve sleep quality and reduce cardiovascular and cerebrovascular events was reviewed. 2. Periodic limb movement, mild, that did not fragment patients sleep. Periodic limb movement of sleep (PLMS) is characterized by episodes of repetitive limb movements that occur during sleep and usually involve the lower limbs. The etiology is unknown. Patient was advised that no treatment is needed at this time. If symptoms increase, then further evaluation is indicated. 3. Obesity, unspecified. Currently patients BMI is 35.4. She says her weight is stable and she tries to eat healthy all the time. Obesity increases the risk of apnea, CPAP pressure requirements and overall health risks especially cardiovascular and diabetes. Thus patient is advised to continue to try to lose weight. * Continue auto CPAP pressure at 12-15 cmH2O * Notify me if snoring with mask or feeling that the pressure is too much or too little * Continue to try to lose weight * Call this office if any problems using CPAP * Return for follow up in 12 months, or sooner if concerns arise Continue with device pressure at (cmH2O): 12-15 Counseling Topics: Weight loss health impact Follow up with Sleep Care in: 1 year Visit Type: In Office Time Spent with Patient (minutes): 20 Provider Statement: I spent 100% of the Face to Face Visit with the patient with greater than 50% spent counseling the patient and coordination of care.
[2023-12-03 11:30] VITALS: BP 134/81; O2SAT 95
== END 2023-12-03 10:54 | disposition home or self-care (01) ==
LOC: SC 10:53
PROVIDERS: ATTEND Nurse Practitioner Family
DX: G47.33 Obstructive sleep apnea (adult) (pediatric) (principal); G47.61 Periodic limb movement disorder; E66.9 Obesity, unspecified; Z68.35 Body mass index [BMI] 35.0-35.9, adult
CPT/HCPCS: 99213; G0463; 99212

== ENCOUNTER 2024-01-07 09:43 | Outpatient (CLI) | payer MEDICARE ==
--- NOTE | 2024-01-07 16:55 | DEXA Report ---
PROCEDURE: Dexa Spine and/or Hip INDICATIONS: POST MENOPAUSAL TECHNIQUE: Dual energy x-ray absorptiometry (DXA) was performed on a [employer] System. Regions measur ed are the AP Spine, femoral neck, and if needed forearm. COMPARISON: None FINDINGS: Lumbar Spine: Bone Mineral Density: 1.431 g/cm/cm,T score: 2.1. Left Femoral Neck: Bone Mineral Density: 1.112 g/cm/cm, T score: 0.5. Left Hip: Bone Mineral Density: 1.154 g/cm/cm,T score: 1.2. FRAX risk factors: None given. (T score greater or equal to -1.0: NORMAL) (T score from -1.1 to -2.4: OSTEOPENIA) (T score less than or equal to -2.5 to: OSTEOPOROSIS) Impression: By WHO criteria, this patient has normal bone density. Patients with diagnosis of osteoporosis or osteopenia should have regular bone mineral density assess ment. For those eligible for Medicare, routine testing is allowed once every 2 years. Testing frequ ency can be increased for patients who have rapidly progressing disease or for those who are receivin g medical therapy to restore bone mass. Reviewed by: Clifford Girard MD on 01/07/2024 4:53 PM PDT Approved by: Clifford Girard MD on 01/07/2024 4:53 PM PDT Station ID: [id number]
== END 2024-01-07 09:44 | disposition home or self-care (01) ==
LOC: DI 09:43
PROVIDERS: ATTEND Nurse Practitioner Family
DX: Z78.0 Asymptomatic menopausal state (principal)

== ENCOUNTER 2024-01-07 09:45 | Outpatient (CLI) | payer MEDICARE ==
[2024-01-07 10:02] LABS: BASOPHILS % (AUTO) 0.7 %; EOSINOPHILS # (AUTO) 0.1 10^3/uL (0.0-0.7); EOSINOPHILS % (AUTO) 1.3 %; HCT - HEMATOCRIT 41.2 % (37.0-47.0); HGB - HEMOGLOBIN 13.6 g/dL (12.0-16.0); LYMPHOCYTES # (AUTO) 1.7 10^3/uL (1.5-3.5); LYMPHOCYTES % (AUTO) 37.2 %; MEAN CORPUSCULAR HEMOGLOBIN 30.7 pg (27.0-31.0); MEAN PLATELET VOLUME 9.5 fL (7.9-10.8); MONOCYTES # (AUTO) 0.3 10^3/uL (0.0-1.0); MONOCYTES % (AUTO) 6.3 %; NEUTROPHILS # (AUTO) 2.5 10^3/uL (1.5-6.6); NEUTROPHILS % (AUTO) 54.3 %; PLT - PLATELET COUNT 257 10^3/uL (130-450); RED BLOOD COUNT 4.43 10^6/uL (4.20-5.40); RED CELL DISTRIBUTION WIDTH 12.8 % (12.0-15.0); WHITE BLOOD COUNT 4.6 x10^3/uL (4.8-10.8)
[2024-01-07 10:15] LABS: ALBUMIN 3.9 g/dL (3.2-5.5); ALBUMIN/GLOBULIN RATIO 1.4 (1.0-2.2); ALKALINE PHOSPHATASE 48 IU/L (42-121); ALT ALANINE AMINOTRANSFERASE 20 IU/L (10-60); AST ASPARTATE AMINOTRANSFERASE 17 IU/L (10-42); BILIRUBIN,TOTAL 0.4 mg/dL (0.2-1.0); BUN - BLOOD UREA NITROGEN 11 mg/dL (6-20); CALCIUM 9.1 mg/dL (8.5-10.3); CARBON DIOXIDE - CO2 30 mmol/L (21-32); CHLORIDE 102 mmol/L (101-111); CHOL/HDL RATIO 2.8 (<4.4); CHOLESTEROL 213 mg/dL; CREATININE 0.5 mg/dL (0.6-1.3); GFR - MDRD 126 (>89); GLUCOSE 109 mg/dL (74-104); HDL CHOLESTEROL 76 mg/dL; LDL CHOLESTEROL,CALCULATED 99 mg/dL; LDL/HDL RATIO 1.3 (<4.4); POTASSIUM 4.2 mmol/L (3.5-4.5); SODIUM 136 mmol/L (135-145); TOTAL PROTEIN 6.7 g/dL (6.4-8.9); TRIGLYCERIDES 191 mg/dL; VLDL CHOLESTEROL 38 mg/dL
[2024-01-07 10:30] LABS: THYROID STIMULATING HORMONE 1.32 uIU/mL (0.34-5.60)
--- NOTE | 2024-01-07 16:51 | XRAY Report ---
PROCEDURE: Lumbar Spine 4V INDICATIONS: LAMBAGO,HIP JOINT PAIN TECHNIQUE: 4 views of the lumbar spine were acquired. COMPARISON: None. FINDINGS: Surgical change: None. Bones: 5 [id number] vertebrae are present. Straightening of the normal lumbar lordosis. No vert ebral body compression fractures. No suspicious bony lesions. There are multilevel degenerative jones ges of the lumbar spine with facet arthropathy and disc height loss with degenerative endplate change s and marginal spurring. No pars interarticularis defects. Soft tissues: Overlying bowel gas pattern is normal. No suspicious soft tissue calcifications. IMPRESSION: Multilevel degenerative changes of the lumbar spine. Reviewed by: Clifford Girard MD on 01/07/2024 4:50 PM PDT Approved by: Clifford Girard MD on 01/07/2024 4:50 PM PDT Station ID: [id number]
--- NOTE | 2024-01-09 11:35 | XRAY Report ---
PROCEDURE: Hips w/Pelvis 3-4V BL INDICATIONS: LAMBAGO,HIP JOINT PAIN TECHNIQUE: 3 views of the hips COMPARISON: None. FINDINGS: Normal bone mineralization. Both hips maintaining appropriate joint space. Patellofemoral and abdomen appropriate to contour. No evidence of fracture, dislocation, or intrinsic osseous lesion. IMPRESSION: Normal bilateral hip radiographs Reviewed by: Dmitriy rFeed MD on 01/09/2024 10:34 AM VITOR Approved by: Dmitriy Freed MD on 01/09/2024 10:34 AM AKKISHAN Station ID: [id number]
== END 2024-01-07 09:46 | disposition home or self-care (01) ==
LOC: DI 09:45
PROVIDERS: ATTEND Nurse Practitioner Family
DX: M47.816 Spondylosis without myelopathy or radiculopathy, lumbar region (principal); M25.551 Pain in right hip; E78.5 Hyperlipidemia, unspecified; E03.9 Hypothyroidism, unspecified; I10 Essential (primary) hypertension; Z78.0 Asymptomatic menopausal state
CPT/HCPCS: 36415; 80053; 80061; 83721; 84443; 85025